=== PATIENT | male | born 1965 | race Caucasian/White ===

== ENCOUNTER → 2017-07-09 | Outpatient (CLI) | payer BC ==
[~2017-07-09] VITALS: Ht 170.2 cm; Wt 120.6 kg
[~2017-07-09] MED LIST: CELEXA10 MG PO; FLONASE ALLERG9.9 ML BOTH NARES; HYDROCHLOROTH12.5 M3 PO; LOTREL 10/41 CAPSULE PO
== END | disposition home or self-care (01) ==
LOC: AMB 08:41
DX: Z12.11 Encounter for screening for malignant neoplasm of colon (principal); D12.2 Benign neoplasm of ascending colon; K57.30 Diverticulosis of large intestine without perforation or abscess without bleeding; I10 Essential (primary) hypertension; E66.3 Overweight; Z68.41 Body mass index [BMI] 40.0-44.9, adult; K76.0 Fatty (change of) liver, not elsewhere classified; F41.9 Anxiety disorder, unspecified; Z82.49 Family history of ischemic heart disease and other diseases of the circulatory system; Z84.2 Family history of other diseases of the genitourinary system
CPT/HCPCS: 88305; J2250